=== PATIENT | male | born 1990 | race Caucasian/White ===

== ENCOUNTER 2016-05-29 23:36 | Emergency (ER) | payer OTHER ==
[~2016-05-29] VITALS: Ht 180.3 cm; Wt 93.9 kg
[~2016-05-29 23:36] MED LIST: ADDE20CA PO; GI cocktail OR; PROT1TAB2 PO; SUCR1TA PO
[2016-05-30] MEDS ORDERED: LIDOCAINE 1% MDV 20ML VIAL As Ordered ONE (01:10)
[2016-05-30] MEDS ORDERED: ceFAZolin 1GM INJ (J0690) IM ONE (01:15)
[2016-05-30] MEDS ORDERED: KEFL500C7 PO (02:02)
[2016-05-30 02:13] VITALS: BP 154/81
--- NOTE | 2016-05-30 10:00 | REP ---
LEFT FOURTH DIGIT: Four views of the left 4th digit are performed. There is a small tuft fracture of the distal phalanx. There appears to be soft tissue disruption. There appears to be a couple of tiny foci of foreign material on the skin or in a subcutaneous location. No other fracture or dislocation is seen. IMPRESSION: Small tuft fracture of distal phalanx. Signed by Jeramie Villegas MD 05/30/2016 03:53 P
== END 2016-05-30 02:16 | disposition home or self-care (01) ==
LOC: M ED 05-30 00:41
DX: S62.635B Displaced fracture of distal phalanx of left ring finger, initial encounter for open fracture (principal); W45.8XXA Other foreign body or object entering through skin, initial encounter; Y92.019 Unspecified place in single-family (private) house as the place of occurrence of the external cause; Y93.89 Activity, other specified; Y99.8 Other external cause status; Z79.899 Other long term (current) drug therapy; F17.210 Nicotine dependence, cigarettes, uncomplicated
CPT/HCPCS: 73140; 96372; 99283; J0690